=== PATIENT | male | born 1935 | race American Indian/Alaskan Native ===

== ENCOUNTER → 2016-08-27 | Outpatient (CLI) | payer OTHER, MEDICARE | LOC: GIMAGING 15:19 | PROVIDERS: ATTEND Family Medicine | DX: M51.36 Other intervertebral disc degeneration, lumbar region (principal); M25.552 Pain in left hip; Z96.641 Presence of right artificial hip joint | CPT/HCPCS: 72100-PO; 73502-PO ==

== ENCOUNTER 2017-10-17 08:55 | Observation (INO) | payer OTHER, MEDICARE ==
--- NOTE | 2017-10-17 09:06 | EDPHY ---
H & P Stated Complaint: Transient loss of movement involving the right arm Time Seen by Provider: 10/17/17 09:06 HPI/ROS: CHIEF COMPLAINT: Right arm weakness HISTORY OF PRESENT ILLNESS: The patient presents the ED after he had transient weakness in his right arm earlier today. The patient did report some mild associated balance disturbance while this occurred. The patient does have a history of mild Parkinson's disease which has resulted in a mild chronic tremor in his left arm. He has not had a history of a stroke or TIA. The patient does have a history of hypertension and hyperglycemia. The patient typically takes 40 mg of lisinopril in the morning. He is not taking that medication yet today. The patient states that his symptoms have essentially resolved. He continues to have a chronic mild tremor in his left upper extremity. REVIEW OF SYSTEMS: A comprehensive 10 point review of systems is otherwise negative aside from elements mentioned in the history of present illness. Source: Patient - Personal History Current Tetanus/Diphtheria Vaccine: Yes Current Tetanus Diphtheria and Acellular Pertussis (TDAP): Yes - Medical/Surgical History Hx Asthma: No Hx Chronic Respiratory Disease: No Hx Diabetes: No Hx Cardiac Disease: No Hx Renal Disease: No Hx Cirrhosis: No Hx Alcoholism: No Hx HIV/AIDS: No Hx Splenectomy or Spleen Trauma: No Other PMH: PMH: pre-diabetes, HTN. - Social History Smoking Status: Never smoked - Physical Exam Exam: General Appearance: Alert, no distress Eyes: Pupils equal and round no pallor or injection ENT, Mouth: Mucous membranes moist Respiratory: There are no retractions, lungs are clear to auscultation Cardiovascular: Regular rate and rhythm Gastrointestinal: Abdomen is soft and nontender, no masses, bowel sounds normal Neurological: Alert and oriented x4, 5/5 strength all 4 extremities, patient does have a resting tremor in his left upper extremity consistent with his history of Parkinson's disease, normal cerebellar exam Skin: Warm and dry, no rashes Musculoskeletal: Neck is supple nontender Extremities: symmetrical, full range of motion Psychiatric: Patient is oriented X 3, there is no agitation Constitutional: Initial Vital Signs Temperature (C) 36.9 C 10/17/17 09:00 Heart Rate 69 10/17/17 09:00 Respiratory Rate 18 10/17/17 09:00 Blood Pressure 200/104 H 10/17/17 09:00 O2 Sat (%) 95 10/17/17 09:00 O2 Delivery Mode Room Air Allergies/Adverse Reactions: No Known Allergies Allergy (Unverified 10/17/17 09:06) Home Medications: Medication Instructions Recorded Fish Oil 1000 mg (*) 10/17/17 Lisinopril 10/17/17 Metformin HCl 2,500 mg 10/17/17 Medical Decision Making - Diagnostics EKG Interpretation: EKG: Complete interpretation has been separately recorded in the [facility] archive. Summary impression: Sinus rhythm, rate 62 Imaging Results: Imaging Impressions Head CT 10/17/17 09:48 Impression: 1. No acute intracranial findings. If symptoms persist and clinical suspicion warrants, consider MRI. 2. Anterior right temporal encephalomalacia possibly related to old trauma or infarct. 3. Diffuse cerebral atrophy with periventricular and subcortical low attenuation consistent with chronic microvascular ischemic gliosis. Findings discussed with Johann Waggoner 10/17/2017 at 10:18. ED Course/Re-evaluation: The patient presents to the ED after an episode of transient weakness involving his right arm. The patient arrives and is back at his neurologic baseline. His NIH stroke scale is 0. The patient was noted to be hypertensive with a blood pressure of 200/100. He had yet to take his morning lisinopril. The patient does not meet any criteria for a stroke alert or consideration of tPA in the setting of his completely resolved symptoms. Workup for TIA will be initiated in the emergency department. The patient is given his usual 40 mg dose of lisinopril. The patient's noncontrast head CT scan demonstrates no evidence of intracranial hemorrhage. The patient was given 325 mg dose of aspirin. Discussion: The patient presents to the ED with a likely resolved TIA in the setting of hypertension. The patient is currently asymptomatic. He will be admitted to the hospital for workup of a first-time TIA. Consultation was made with the hospitalist service. The patient will be admitted to the neurology floor under the care of Carina Shrestha. Differential Diagnosis: Differential diagnosis considered includes intracranial hemorrhage, stroke, TIA , Parkinson's disease, atypical migraine - Data Points Laboratory Results: Laboratory Results 10/17/17 09:30 10/17/17 09:30 10/17/17 10/17/17 09:30 09:30 WBC 5.43 10^3/uL 10^3/uL (3.80-9.50) RBC 4.93 10^6/uL 10^6/uL (4.40-6.38) Hgb 14.7 g/dL g/dL (13.7-17.5) Hct 44.7 % % (40.0-51.0) MCV 90.7 fL fL (81.5-99.8) MCH 29.8 pg pg (27.9-34.1) MCHC 32.9 g/dL g/dL (32.4-36.7) RDW 13.4 % % (11.5-15.2) Plt Count 232 10^3/uL 10^3/uL (150-400) MPV 11.3 fL fL (8.7-11.7) Neut % (Auto) 52.6 % % (39.3-74.2) Lymph % (Auto) 29.5 % % (15.0-45.0) [place] % (Auto) 8.7 % % (4.5-13.0) Eos % (Auto) 8.3 % H % (0.6-7.6) Baso % (Auto) 0.7 % % (0.3-1.7) Nucleat RBC Rel Count 0.0 % % (0.0-0.2) Absolute Neuts (auto) 2.86 10^3/uL 10^3/uL (1.70-6.50) Absolute Lymphs (auto) 1.60 10^3/uL 10^3/uL (1.00-3.00) Absolute Monos (auto) 0.47 10^3/uL 10^3/uL (0.30-0.80) Absolute Eos (auto) 0.45 10^3/uL H 10^3/uL (0.03-0.40) Absolute Basos (auto) 0.04 10^3/uL 10^3/uL (0.02-0.10) Absolute Nucleated RBC 0.00 10^3/uL 10^3/uL (0-0.01) Immature Gran % 0.2 % % (0.0-1.1) Immature Gran # 0.01 10^3/uL 10^3/uL (0.00-0.10) Sodium 140 mEq/L mEq/L (135-145) Potassium 4.8 mEq/L mEq/L (3.3-5.0) Chloride 101 mEq/L mEq/L (97-110) Carbon Dioxide 28 mEq/l mEq/l (22-31) Anion Gap 11 mEq/L mEq/L (8-16) BUN 19 mg/dL mg/dL (7-23) Creatinine 0.9 mg/dL mg/dL (0.7-1.3) Estimated GFR > 60 Glucose 132 mg/dL H mg/dL (70-100) Calcium 9.5 mg/dL mg/dL (8.5-10.4) Medications Given: Discontinued Medications Lisinopril (Zestril) 40 mg PO EDNOW ONE Stop: 10/17/17 09:22 Last Admin: 10/17/17 10:35 Dose: 40 mg Departure - Departure Disposition: [facility] Inpatient Acute Clinical Impression: TIA (transient ischemic attack), Hypertension Condition: Good Referrals: Patient,NotPresent [Unknown] - As per Instructions
[2017-10-17] MEDS ORDERED: LISINOPRIL 40 MG TAB PO ONE (09:21)
[2017-10-17 09:49] LABS: PLATELET COUNT 232 10^3/uL (150-400)
[2017-10-17] MEDS ORDERED: ASPIRIN 81 MG CHEWABLE TAB PO ONE (10:38)
--- NOTE | 2017-10-17 13:19 | CPEKG ---
Test Reason : OPEN Blood Pressure : / mmHG Vent. Rate : 062 BPM Atrial Rate : 062 BPM P-R Int : 233 ms QRS Dur : 091 ms QT Int : 418 ms P-R-T Axes : -50 -38 031 degrees QTc Int : 425 ms Sinus or ectopic atrial rhythm Prolonged AL interval Left axis deviation Confirmed by Johann Waggoner ([id number]) on 10/17/2017 1:18:52 PM Referred By: Confirmed By:Johann Waggoner
[2017-10-17] MEDS ORDERED: ONDANSETRON DISINTEGRATING 4 MG TAB PO PRN (13:21)
[2017-10-17] MEDS ORDERED: ONDANSETRON 4 MG/2 ML VIAL IVP PRN (13:21)
[2017-10-17] MEDS ORDERED: ACETAMINOPHEN 325 MG TAB PO PRN (13:21)
--- NOTE | 2017-10-17 14:12 | GHP ---
DATE OF ADMISSION: 10/17/2017 CHIEF COMPLAINT: Transient right arm weakness. HISTORY OF PRESENT ILLNESS: The patient is an 82-year-old male with a history of hypertension, pre diabetes, and mild Parkinson's. He presented to the emergency room after he had some transient weakness in his right arm and hand earlier today. He woke up at 5:30 a.m. this morning to use the bathroom and he felt fine. He then returned to bed. When he woke up at 7:30 he noticed that his hand was giving him more difficulty. He tried to push the covers back and was unable to use it. He then got out of bed to brush his teeth and had difficulty doing this. Then he was having difficulty placing his hearing aid into his ear. He did not have any trouble speaking. No loss of sensation. He said he was able to call the ambulance and walked to the ambulance. He does not have a history of a stroke or transient ischemic attacks. In the ER, it was noted that his blood pressure was very high, but he had not taken his lisinopril. He lives independently at [place] and is a fit gentleman. PAST MEDICAL HISTORY: 1. Hypertension. 2. Mild Parkinson's in his left hand. He takes supplements to help with this. 3. Pre diabetes on metformin. PAST SURGICAL HISTORY: 1. Right total hip arthroplasty in 2008. 2. TURP. 3. Cataract surgery. 4. Vasectomy. 5. Tonsillectomy. SOCIAL HISTORY: He works out daily and walks daily. He goes to the gym and does weights. He rides a trike to get around. He said his balance is not as good as it used to be, but does balance work exercises. He has been for 4 years. His from complications of cancer. He has 3 children. 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 He does not drink or smoke. FAMILY HISTORY: His mom had a stroke. His sister from complications of a stroke approximately a year ago. ALLERGIES: No known allergies. HOME MEDICATIONS: Multivitamin 1 tab daily, herbal supplements 1 tab daily, metformin 500 mg daily at noon, metformin 1000 mg twice daily, fish oil 1000 mg daily, and lisinopril 40 mg daily. REVIEW OF SYSTEMS: A 10-point review of system was performed, was negative other than the pertinent positives in HPI and past medical history. PHYSICAL EXAM: GENERAL: The patient is an 82-year-old male who appears younger than his stated years. VITAL SIGNS: Blood pressure is 145/80, heart rate is 68 , respiratory rate is 17, O2 saturation on room air 95%, temperature is 36.4 Celsius. EYES: Pupils are equal reactive. EOMs are intact. No conjunctival injection noted. ENT: Normal ears. Hearing intact. Normal lips. Good dentition. NECK: Trachea is midline. CARDIOVASCULAR: He is in a regular rate and rhythm. CHEST/LUNGS: Normal respiratory effort. Clear without wheezing, rales, or rhonchi. ABDOMEN: Soft, nontender. SKIN: No rashes, ulcer. Warm, dry, intact. 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 His right foot pullup is slightly weaker. NEUROLOGIC: He is alert and oriented to person, place, time, and situation. Tongue is midline. He has a slight pronator drift noted on the right hand. PSYCHIATRIC: He has normal mood , affect. Normal judgment, insight and normal memory. DATA REVIEWED: A chemistry panel shows a sodium of 140, potassium 4.8, chloride of 101, CO2 of 28, BUN of 19, creatinine 0.9, glucose of 132. CBC shows a white blood cell count of 5.43, hemoglobin 14.7, hematocrit of 44.7, platelet count of 232. Radiologic data: A head CT shows no acute intracranial findings. He has an anterior right temporal encephalomalacia, probably related to old trauma or infarct. He has diffuse cerebral atrophy with periventricular and subcortical low attenuation consistent with chronic microvascular ischemic gliosis. Carotid Doppler study is pending. EKG shows a sinus rhythm with a of 1st degree AV block. ASSESSMENT/PLAN: 1. Right arm weakness, concern for transient ischemic attack versus a stroke. Because his mother had from complications of a stroke and his sister recently from a stroke and he has some ongoing slight right hand weakness and right foot weakness, will get an MRI. Will check a lipid panel, A1c, echocardiogram. Will place him on telemetry monitoring. I have asked for Neurology to see him in the morning. Aspirin therapy has been ordered. 2. Hypertension. This was uncontrolled initially in the emergency room, improved after getting his MARKO inhibitor. Will allow for permissive hypertension in the setting of possible transient ischemic attack versus a stroke. 3. Mild Parkinson's. The patient does not feel this is impacting his life or his health.He is on supplements for this. 4. Code status: Do not resuscitate.. 5. Deep venous thrombosis prophylaxis. High risk. Low-molecular weight heparin. 6. Length of stay. He will likely require less than a 2-midnight stay, which will make him observation status. This can be further evaluated in the morning. /[id number]/MODL MTDD
--- NOTE | 2017-10-17 16:03 | ECHO ---
[email or web address] [address] [address] Main: [phone] Fax: [email or web address] Echocardiogram Name: MAL HENI MR#: [id number] Study Date: 10/17/2017 Study Time: 01:54 PM Date of : 1935 Age: 82 year(s) Height: 180.3 cm (71 in.) Weight: 63.5 kg (140 lb.) BSA: 1.81 m2 Gender: Male Examination: Echo Indication: transient right sided weakness Image Quality: Adequate Contrast: Requested by: Carina Shrestha BP: 145 mmHg/80 mmHg Heart Rate: Rhythm: Indication: transient right sided weakness Procedure Staff Wheel Mill Operator: Breonna Ugalde RDCS Reading Physician: David Blanc MD Requesting Provider: Conclusions: Normal size left ventricle. No LV hypertrophy. EF is 66 %. No regional wall motion abnormality. Diastolic LV function normal for age. Pulmonary artery pressure is not obtained due to inadequate TR jet. No pericardial effusion. Measurements: Chambers Valvular Assessment AV/MV Valvular Assessment TV/PV Normal Normal Normal Name Value Range Name Value Range Name Value Range Ao Joan (2D): 3.5 cm (1.4 cm-2.6 AV Vmax: 1.35 m/s (1 m/s-1.7 PV Vmax: 0.95 m/s (0.6 m/s-0.9 cm) m/s) m/s) IVSd (2D): 1.0 cm (0.6 cm-1.1 AV maxP mmHg ( - ) PV PGmax: 4 mmHg ( - ) cm) LVOT Vmax: 1.02 m/s (0.7 m/s-1.1 LVDd (2D): 3.5 cm (4.2 cm-5.9 m/s) cm) MARLO (Vmax): 2.6 cm2 ( - ) LVDs (2D): 2.2 cm (2.1 cm-4 MV E Vmax: 0.59 m/s ( - ) cm) MV A Vmax: 0.62 m/s ( - ) LVPWd (2D): 1.0 cm (0.6 cm-1 MV E/A: 0.95 ( - ) cm) LVOTd 2.1 cm 2.1 cm mm LVEF (BP): 66 % (>=55 %) RVDd(2D): 3.3 cm (1.9 cm-3.8 cmmm) Continued Measurements: Chambers Valvular Assessment AV/MV Patient: MAL HEIN Study Date: 10/17/2017 Page 1 of 2 01:54 PM Name Value Name Value LADs Lon.8 cm MV DecTime: 229 m/s LA Area: 14.6 cm2 MV E' Septal: 0.08 m/s LA Volume: 42 ml MV E/E' Septal: 6.90 LA Volume Index: 23.2 ml/m2 MV E/E' Lateral: 6.40 TAPSE: 1.9 cm RA Area: 16.5 cm2 Additional Vessels Name Value Ao Ascendin.3 cm Findings: Left Ventricle: Normal size left ventricle. No LV hypertrophy. Normal global systolic LV function. EF is 66 %. No regional wall motion abnormality. Diastolic LV function normal for age. Right Ventricle: Normal size right ventricle. Normal RV function. Left Atrium: The left atrium is normal in size. Normal appearing atrial septum. Right Atrium: The right atrium is normal in size. Mitral Valve: The mitral valve is normal in appearance. Trivial mitral valve regurgitation. No mitral stenosis is present. Aortic Valve: The aortic valve is tri-leaflet. There is no significant aortic valve regurgitation. No aortic valve stenosis is present. Tricuspid Valve: The tricuspid valve is normal in appearance and function. Trivial tricuspid valve regurgitation. Pulmonary artery pressure is not obtained due to inadequate TR jet. Pulmonic Valve: Pulmonary valve not well visualized. There is no pulmonic regurgitation seen. Aorta: Normal size aortic root measuring 3.5 cm. Normal size ascending aorta measuring 3.3 cm. IVC: The IVC is normal sized. Pericardium: No pericardial effusion. (No Signature Object) Patient: MAL HEIN Study Date: 10/17/2017 Page 2 of 2 01:54 PM [id number]
--- NOTE | 2017-10-17 16:08 | GCON ---
NEUROLOGY CONSULT. DATE OF CONSULTATION: 10/17/2017 REFERRING PHYSICIAN: Carina Shrestha NP CHIEF COMPLAINT: Right arm weakness, resolved. HISTORY OF PRESENT ILLNESS: The patient is a very pleasant 82-year-old gentleman who has a history of parkinsonism in the left hemibody in terms of background. He has not sought specific neurologic treatment or see a neurologist for this yet. He was thinking about it. He comes in for unrelated reasons today. This morning when he was taking the covers off his body in bed, he noticed his right hand was not working well. This lasted for around 15 or 20 minutes and then spontaneously resolved. He denies any symptoms in his right face or right leg. Describes the symptoms in his right hand as some mixture of numbness, weakness and dis-coordination. Again, this resolved after 15-20 minutes. He came into the ED. Notably, he had not taken his blood pressure medication yet when this occurred. When he came to the emergency department his blood pressure was 200/104. They gave him his home dose of blood pressure medication and it has been trending downwards. He does not take any kind of antithrombotic daily such as aspirin. He has been now started on aspirin. He had a head CT without contrast which showed expected age related changes. In addition, there was some anterior right temporal encephalomalacia of unknown cause or etiology noted. He had a carotid ultrasound which shows no significant obstruction. He has been on telemetry without any report of atrial fibrillation thus far. Does not have palpitations. REVIEW OF SYSTEMS: Ten-point review of system was done, only pertinent to the HPI. For past medical history, social history, family history, home medications, allergies see Ms. Shrestha's H and P. PHYSICAL EXAM: VITAL SIGNS: Blood pressure now is 145/80, heart rate 68, temperature 36.4. GENERAL: He is awake and alert. Very pleasant. No aphasia. NEURO: Cranial nerve exam, he does have some decreased facial expression that is minimal. On formal motor, speech testing, there is some articulatory imprecision and increased rate of plosive sounds consistent with parkinsonism. On motor exam, the patient has a very prominent pill-rolling rest tremor in the left upper extremity with some cogwheel rigidity at the wrist. AMRs are diminished on the left and on the right as well. There was no objective weakness in the right upper extremity now. There was very minimal cogwheeling at the right wrist. Lower extremity strength was normal. IMPRESSION AND PLAN: 1. Right upper extremity weakness, resolved. 2. Parkinsonism. The patient has acute right arm weakness, which has resolved, the differential diagnosis includes transient ischemic attack or stroke from a neurovascular standpoint. Certainly other etiologies such as a peripheral cause could be considered as well. However, our initial evaluation will be focused towards an acute neurovascular evaluation. I note that his carotid ultrasound shows no significant obstruction. We will await his echocardiogram results and MRI brain results. This certainly may have been a lacunar type infarct from a hypertensive emergency with end-organ damage. We will await all results before commenting further or final diagnosis. Going forward, I also recommend he stay on aspirin indefinitely along with statin therapy based on his lipids. If there is anything unexpected on his MRI brain, we certainly will make recommendations accordingly. In regard to his parkinsonism, I will follow him up as an outpatient for further evaluation and treatment with dopaminergic agents. We will do this as an outpatient. I will see him back in 6-8 weeks in the clinic for all the above. We will review test results as they come back here as an inpatient and make recommendations accordingly. Please do not hesitate to call with any questions or change in neurologic status with this very pleasant patient. Seventy total minutes floor time today reviewing records, labs, imaging, and in counseling with the patient and coordination of care. /[id number]/MODL MTDD
[2017-10-18] MEDS ORDERED: LISINOPRIL 40 MG TAB PO SCH (09:00)
[2017-10-18] MEDS ORDERED: MULTIVITAMINS 1 EACH TAB PO SCH (09:00)
[2017-10-18] MEDS ORDERED: ENOXAPARIN 40 MG/0.4 ML SYR SC SCH (09:00)
[2017-10-18] MEDS ORDERED: ASPIRIN 325 MG TAB PO SCH (09:00)
[2017-10-18] MEDS ORDERED: Herbals/Supplements -Info Only PO SCH (09:00)
[2017-10-18] MEDS ORDERED: OMEGA-3 FATTY ACIDS 1,000 MG CAP PO SCH (09:00)
--- NOTE | 2017-10-18 13:00 | NEUROPROG ---
Assessment: 1. Stroke 2. Parkinsonism The MRI brain showed multiple small areas of acute infarct all in the left hemisphere. Echocardiogram did not show any intracardiac thrombus or left atrial dilation. No atrial fibrillation on telemetry that I am aware of thus far. Going forward, I recommend the followin. CTA of the neck with contrast. Although the carotid ultrasound is negative, I want to completely exclude any cervical carotid disease on the left as the etiology of his multiple left hemisphere strokes. If this exam is negative for significant left carotid artery disease, then he can discharge home with aspirin 325 mg daily coated with meals plus statin therapy. 2. If he is discharged home with a negative CTA neck, then he should follow up with Cardiology for prolonged ECG monitoring to exclude paroxysmal atrial fibrillation. 3. I have arranged follow-up to review all of the above and offer treatment for his parkinsonism. We will look forward to follow-up. Finally, if there is significant left carotid disease then the next step would be consultation with surgery for possible endarterectomy. Please do not hesitate to call the neurology service if there are any significant/abnormal findings on CTA neck. Otherwise, we will continue to follow this patient as needed in the hospital and as an outpatient. We appreciate the consultation. 35 total minutes floor time reviewing interim imaging, counseling the patient and his son on the phone and coordination of care. Subjective: Somewhat improved right hand weakness Objective: Vital Signs Temp Pulse Resp BP Pulse Ox 36.3 C 69 20 145/86 H 95 10/18/17 11:49 10/18/17 11:49 10/18/17 11:49 10/18/17 11:49 10/18/17 11:49 10/17/17 10/18/17 10/19/17 05:59 05:59 05:59 Intake Total 200 Balance 200 Left-sided parkinsonism in upper extremity and right hand weakness/ discoordination Allergies/Adverse Reactions: No Known Allergies Allergy (Unverified 10/17/17 09:06)
[2017-10-18] MEDS ORDERED: IOPAMIDOL (ISOVUE 370) 100 ML BTL IV ONE (14:06)
[2017-10-18 15:41] VITALS: BP 153/87
--- NOTE | 2017-10-18 15:57 | ASMTLACE ---
LACE Length of stay for Answers: 2 days current admission Acuity / Level of Answers: No Care: Did the patient have an inpatient admission? Comorbidities - select Answers: Diabetes (uncontrolled or all that apply controlled) Opioid dependence / Chronic pain Other Notes: HTN; Parkinson's diseas e # of Emergency department Answers: 1-2 visits in the last 6 months Score: 9 Date Signed: 10/18/2017 03:56 PM Electronically Signed By:OMKAR Diez
--- NOTE | 2017-10-18 15:59 | GDS ---
DIAGNOSES: 1. Ischemic stroke within the left parietal lobe along the distal middle cerebral artery. 2. Mildly elevated LDL at 103. 3. Hypertension. 4. Mild Parkinson disease. 5. Prediabetes, on metformin. CONSULTATIONS: Dr. Jaylon Garcia, Neurology. PROCEDURES DONE: Head and neck CTA showing moderate stenosis of the left internal carotid artery wit hout evidence of dissection or ulcerated plaque. Mild stenosis of the origin of the right internal c arotid artery. Head CT without contrast, unremarkable. Brain MRI with the above findings. Carotid Dopplers: No significant obstructing stenosis. Electrocardiogram: Sinus rhythm. HOSPITAL COURSE: Mr. Hess is a very nice 82-year-old man with a history of hypertension who come s in with some right hand weakness. It had spontaneously resolved by the time he got to the hospital . However, we did the above evaluation, which revealed small ischemic strokes along the middle cereb ral artery. At this time, there is no obvious cause. However, he will be started on aspirin and a s tatin for mildly elevated LDL greater than 70. He is completely resolved his neurologic symptoms. e will be following up with Dr. Garcia as an outpatient. Further evaluation as an outpatient will inclu de Holter monitoring to rule out any paroxysmal atrial fibrillation. That will be ordered at the al e of discharge. CONDITION ON DISCHARGE: Good. VITAL SIGNS: Stable. NEUROLOGIC: Stable. DISCHARGE MEDICATIONS: Please see discharge medication form. Followup will be with Dr. Garcia [facility] 6[facility] Follow up with his primary care physician within 2 weeks. Total time spent with the patient on day of discharge: 30 minutes. /[id number]/MODL
--- NOTE | 2017-10-18 16:00 | ASMTCMCOM ---
CM Note CM Note Notes: Pt medically stable for d/c with outpatient cardiology and neurology follow up. No CM d/c needs identified. OT/PT rec home, [facility] rec outpatient. Pt resides at [facility], has son local. Date Signed: 10/18/2017 04:00 PM Electronically Signed By:OMKAR Diez
[2017-10-19] MEDS ORDERED: ATORVASTATIN CALCIUM 20 MG TAB PO SCH (09:00)
== END 2017-10-18 16:41 | disposition home or self-care (01) ==
LOC: EDUNIT# → UNDOADMOB 10:47 → F3N 12:17
PROVIDERS: ADMIT Nurse Practitioner Family; ATTEND Internal Medicine
DX: I63.512 Cerebral infarction due to unspecified occlusion or stenosis of left middle cerebral artery (principal); I10 Essential (primary) hypertension; G20 Parkinson's disease; R73.03 Prediabetes; Z79.84 Long term (current) use of oral hypoglycemic drugs; Z96.641 Presence of right artificial hip joint
CPT/HCPCS: 70450; 70496; 70498; 70551; 92523; 93005; 93306; 93880; 97161; 97165; 99285; G0378; G8978; G8979; G8980; G8987; G8988; G8999; G9186; J1650; Q9967